=== PATIENT | male | born 1990 | race Caucasian/White ===

== ENCOUNTER 2018-06-04 10:51 | Emergency (ER) | payer OTHER, SELFPAY ==
[2018-06-04] MEDS ORDERED: Adacel (T-DAP) 0.5 ML SYRINGE ONE (12:26)
== END 2018-06-04 12:51 | disposition home or self-care (01) ==
LOC: ERS 10:51
DX: S61.412A Laceration without foreign body of left hand, initial encounter (principal); F17.200 Nicotine dependence, unspecified, uncomplicated; W26.8XXA Contact with other sharp object(s), not elsewhere classified, initial encounter
CPT/HCPCS: 90471; 90715

== ENCOUNTER 2018-06-04 22:57 | Emergency (ER) | payer OTHER, SELFPAY ==
[2018-06-04] MEDS ORDERED: Lidocaine 1% (PF) 30 ML VIAL ONE (23:06)
== END 2018-06-04 23:21 | disposition home or self-care (01) ==
LOC: ERS 22:57
DX: S61.411A Laceration without foreign body of right hand, initial encounter (principal); F17.210 Nicotine dependence, cigarettes, uncomplicated; W19.XXXA Unspecified fall, initial encounter
CPT/HCPCS: 99282; J2001

== ENCOUNTER 2019-02-24 17:51 | Emergency (ER) | payer SELFPAY | END 2019-02-24 19:45 | disposition home or self-care (01) | LOC: ERS 17:51 | DX: S61.213A Laceration without foreign body of left middle finger without damage to nail, initial encounter (principal); F17.210 Nicotine dependence, cigarettes, uncomplicated; W26.0XXA Contact with knife, initial encounter | CPT/HCPCS: 99282 ==

== ENCOUNTER 2019-03-21 13:53 | Emergency (ER) | payer SELFPAY ==
[2019-03-21] MEDS ORDERED: Ketorolac Tromethamine 30 MG/ML VIAL ONE (14:42)
[2019-03-21 15:45] LABS: #Eosinphils 0.1 thou/uL (0.0-0.7); #Lymphocytes 0.5 thou/uL (1.20-3.40); #Monocytes 0.7 thou/uL (0.11-0.59); %Basophils 0.2 % (0.0-1.0); %Lymphocytes 9.6 % (21.0-51.0); %Monocytes 13.9 % (0.0-10.0); %Neutrophils 75.3 % (42.0-75.0); Mean Corpuscular HGB CONC 35.4 g/dL (32.0-36.0); Mean Corpuscular Hemoglobin 32.1 pg (27.0-31.0); Mean Corpuscular Volume 90.7 fL (78.0-98.0); Mean Platelet Volume 7.4 fL (7.4-10.4); Platelet Count 152 thou/uL (130-400); RBC Distribution Width 11.8 % (11.5-14.5); Red Blood Cell (RBC) Count 4.36 mill/uL (4.70-6.10); White Blood Cell (WBC) Count 5.3 thou/uL (4.8-10.8)
[2019-03-21 16:08] LABS: ALT (SGPT) 49 U/L (8-55); AST (SGOT) 43 U/L (5-34); Albumin 3.7 g/dL (3.5-5.0); Alkaline Phosphatase 55 U/L (40-110); Anion Gap 11 mmol/L (10-20); BUN (Urea Nitrogen) 11 mg/dL (8.9-20.6); Bilirubin, Total 0.3 mg/dL (0.2-1.2); CK (CPK) 95 U/L (30-200); Calc. Creatinine Clearance 0 mL/min (70-130); Calcium 8.1 mg/dL (7.8-10.44); Carbon Dioxide 24 mmol/L (22-29); Chloride 104 mmol/L (98-107); Estimated GFR-MDRD Greater than 90; Globulin 1.7 g/dL (2.4-3.5); Glucose 73 mg/dL (70-105); Potassium 3.3 mmol/L (3.5-5.1); Protein, Total 5.4 g/dL (6.0-8.3); Sodium 136 mmol/L (136-145)
== END 2019-03-21 16:59 | disposition home or self-care (01) ==
LOC: ERS 13:53
DX: M79.10 Myalgia, unspecified site (principal); F17.210 Nicotine dependence, cigarettes, uncomplicated
CPT/HCPCS: 80053; 82550; 85025; 87804; 96361; 96374; J1885